=== PATIENT | male | born 1980 | race Caucasian/White ===

== ENCOUNTER 2022-08-30 18:45 | Emergency (ER) | payer SELFPAY | END 2022-08-30 21:01 | disposition left against medical advice (07) | LOC: MW.ED 18:45 | DX: Z53.21 Procedure and treatment not carried out due to patient leaving prior to being seen by health care provider (principal) ==

== ENCOUNTER 2022-08-31 18:39 | Emergency (ER) | payer SELFPAY ==
[2022-08-31] MEDS ORDERED: Ketorolac 60 MG/2 ML SDV IM ONE (19:07)
== END 2022-08-31 20:17 | disposition home or self-care (01) ==
LOC: MW.ED 18:39
DX: S62.325A Displaced fracture of shaft of fourth metacarpal bone, left hand, initial encounter for closed fracture (principal); W01.0XXA Fall on same level from slipping, tripping and stumbling without subsequent striking against object, initial encounter
CPT/HCPCS: 29125; 73130; 96372; 99283; J1885

== ENCOUNTER 2022-10-31 16:47 | Emergency (ER) | payer BC ==
[2022-10-31] MEDS ORDERED: Acetaminophen/HYDROcodone 325-5 MG Tab PO ONE (19:50)
== END 2022-10-31 20:11 | disposition home or self-care (01) ==
LOC: MW.ED 16:47
DX: M25.561 Pain in right knee (principal); X50.1XXA Overexertion from prolonged static or awkward postures, initial encounter
CPT/HCPCS: 73562; 99283; A9270